=== PATIENT | female | born 2000 | race Caucasian/White ===

== ENCOUNTER 2020-03-26 18:12 | Outpatient (REF) | payer MEDICAID, SELFPAY ==
[2020-03-30 07:09] LABS: Chlamydia Result Negative (Negative); GC Result Negative (Negative)
== END 2020-03-26 18:32 ==
LOC: LBN 18:12
PROVIDERS: Visit Provider Nurse Practitioner Family
DX: Z11.3 Encounter for screening for infections with a predominantly sexual mode of transmission (principal)
CPT/HCPCS: 87491; 87591

== ENCOUNTER 2020-07-16 20:20 | Outpatient (REF) | payer MEDICAID, SELFPAY ==
[2020-07-20 22:15] LABS: COVID-19 RT-PCR Result NEGATIVE (Negative)
== END 2020-07-16 20:40 ==
LOC: NCHCN 20:20
PROVIDERS: Visit Provider Nurse Practitioner Family
DX: Z20.828 Contact with and (suspected) exposure to other viral communicable diseases (principal)
CPT/HCPCS: U0003

== ENCOUNTER 2020-09-12 23:56 | Emergency (ER) | payer MEDICAID, SELFPAY ==
[2020-09-13 00:01] VITALS: BP 146/82; PULSE 109; RESP 16; TEMP 37.2; O2SAT 100
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
== END 2020-09-13 00:15 | disposition home or self-care (01) ==
PROVIDERS: Emergency Provider Student in an Organized Health Care Education/Training Program
DX: S70.12XA Contusion of left thigh, initial encounter (principal); V86.52XA Driver of snowmobile injured in nontraffic accident, initial encounter
CPT/HCPCS: 99283

== ENCOUNTER → 2022-06-09 00:21 | Outpatient (CLI) | payer MEDICAID, SELFPAY ==
--- NOTE | 2022-06-09 | DI.MRI_ITS ---
Exam(s) MR BRAIN WO EXAM: MR BRAIN WO CLINICAL HISTORY: chronic migraine w/o aura/migrainosus,new rt sided facial twitching,G43.709 TECHNIQUE: Multiplanar multisequence MRI of the brain was performed. COMPARISON: No exams were available for comparison FINDINGS: CEREBRAL PARENCHYMA: There is no evidence of intracranial hemorrhage, mass effect, or shift of midline structures. There are no extra-axial fluid collections. Ventricles are not enlarged or shifted. There is no significant focal signal abnormality in the cerebellar hemispheres nor within the chan, m idbrain, and thalami. There is no abnormal signal abnormality in the periventricular white matter. No evidence of demyelin ating disease. There is no significant focal signal abnormality evident on diffusion imaging to suggest acute ischem ic event. PITUITARY GLAND: No mass nor parasellar abnormality. No obvious abnormality in the cavernous sinuses. FLOW VOIDS: The expected flow void are noted. No evidence of obvious aneurysm nor obvious vascular ma lformation. PARANASAL SINUSES: The visualized paranasal sinuses appear unremarkable. No obvious finding ORBITS: No obvious findings. IMPRESSION: No significant intracranial findings on this noninfused MRI scan of the brain. No evidence of abnormal periventricular signal abnormality which is sometimes evident in chronic migr catarina suffers. No evidence of demyelinating disease. DATA REPOSITORY:
== END ==
PROVIDERS: PCP Nurse Practitioner Family; Visit Provider Psychiatry & Neurology Neurology
DX: G43.709 Chronic migraine without aura, not intractable, without status migrainosus (principal)
CPT/HCPCS: 70551

== ENCOUNTER 2023-06-20 10:32 | Outpatient (REF) | payer MEDICAID, SELFPAY ==
--- NOTE | 2023-06-20 09:00 | PAPFT_PTH ---
PATIENT: Cassia Campos LOC: [facility] U#:[id number] AGE/SX: 22/F ROOM: RE06/20/[address]: Crystal Lopes MD : [id number] BED: DIS: 06/20/2023 SPEC #: [id number] RECD: 06/20/23 13:11 STATUS: ROXANA SÁNCHEZ #: [id number] RADHA: 06/20/23 09:[address]: Crystal Lopes DEPT: [facility] Cytology RECD BY: Martina Toro ENTERED: 06/20/23 13:11 SP TYPE: PAPFT OT DR: Dorothy Conti, [employer] Tissues: 1 - CX/ENDOCX FOR PAP SMEARS Procedures: PAP THIN PREP/[facility] Screening Comments: [id number] (CHLAMYDIA/GC)
[2023-06-21 14:37] LABS: Chlamydia Result Negative (Negative); GC Result Negative (Negative)
== END 2023-06-20 10:33 | disposition home or self-care (01) ==
LOC: LBN 10:32
PROVIDERS: PCP Nurse Practitioner Family; Visit Provider Obstetrics & Gynecology
DX: Z12.4 Encounter for screening for malignant neoplasm of cervix (principal)
CPT/HCPCS: 87491; 87591; 88142

== ENCOUNTER 2023-09-26 01:27 | Outpatient (CLI) | payer BC, SELFPAY ==
[2023-09-26 12:57] LABS: Hemoglobin A1C 5.1 % (<5.7)
[2023-09-26 13:01] LABS: Anion Gap 8.9 mmol/L (3-11); BUN 16 mg/dL (7-18); CO2 26.1 mmol/L (21.0-32.0); Calcium 9.3 mg/dL (8.5-10.1); Calculated LDL 77 mg/dL (<100); Chloride 108 mmol/L (98-107); Cholesterol 134 mg/dL (<200); Estimated GFR 81.69 (mL/min/1.73m2); Glucose 98 mg/dL (74-106); HDL Cholesterol 39 mg/dL (40-60); Potassium 3.7 mmol/L (3.5-5.1); Sodium 143 mmol/L (136-145); TSH (W/Ref FT4) 1.75 uIU/mL (0.36-3.74); Triglyceride 90 mg/dL (<150)
== END 2023-09-26 01:28 | disposition home or self-care (01) ==
LOC: LOS 01:27
PROVIDERS: PCP Nurse Practitioner Family; Visit Provider Nurse Practitioner Family
DX: Z00.00 Encounter for general adult medical examination without abnormal findings (principal); E66.8 Other obesity; Z13.220 Encounter for screening for lipoid disorders; Z13.1 Encounter for screening for diabetes mellitus; Z13.29 Encounter for screening for other suspected endocrine disorder
CPT/HCPCS: 36415; 80048; 80061; 83036; 84443